=== PATIENT | female | born 1980 | race Two or more races ===

== ENCOUNTER 2025-05-09 23:24 | Inpatient (IN) | payer OTHER ==
[~2025-05-09] VITALS: Ht 162.6 cm; Wt 56.7 kg
[2025-05-10 00:09] LABS: *BILIRUBIN,URIN NEGATIVE (NEGATIVE); *BLOOD, URINE 2+ (NEGATIVE); *CLARITY,URINE CLEAR (CLEAR); *COLOR,URINE YELLOW (YELLOW); *KETONES,URINE NEGATIVE (NEGATIVE); *PROTEIN,URINE 2+ (NEGATIVE); *UROBILINOGEN,URINE 1.0 E.U./dl (NORMAL); LEUKOCYTE ESTERASE ,URINE 1+ (NEGATIVE); NITRITE, URINE NEGATIVE (NEGATIVE); UGLUCOSE NEGATIVE (NEGATIVE)
[2025-05-10 00:11] LABS: CREATININE 0.8 mg/dL (0.6-1.3); SODIUM SERUM 140.0 mmol/L (136-145); UREA NITROGEN, BLOOD 9.0 mg/dL (7-18)
[2025-05-10 00:12] LABS: *URINE HCG, QUAL NEGATIVE (NEGATIVE)
[2025-05-10 00:14] LABS: PLATELET COUNT (AUTO) 377 K/uL (179-408); RED BLOOD CELL COUNT(AUTO) 3.87 MIL/uL (3.63-4.92); RED CELL DISTRIBUTION WIDTH 22.3 % (12.3-17.7); WHITE BLOOD COUNT (AUTO) 10.6 K/uL (3.8-11.8)
[2025-05-10] MEDS: KETOROLAC TROMETHAMINE 15 MG INJ IVP ONE (00:15)
[2025-05-10] MEDS: ONDANSETRON 4 MG/2 ML VIAL IV ONE (00:15)
[2025-05-10] MEDS: IV NORMAL SALINE 1000 ML BAG IV ONE (00:15)
[2025-05-10 00:16] LABS: SQUAMOUS EPITHELIAL CELL,UR FEW /HPF (NONE SEEN)
[2025-05-10 00:17] LABS: ASPARTATE AMINOTRANSFERASE 27.0 U/L (15-37); TOTAL PROTEIN, SERUM 8.3 g/dL (6.4-8.2)
[2025-05-10] MEDS: POTASSIUM CHLORIDE 20 MEQ TAB.PRT.SR PO ONE ×2 (01:37→04:49)
[2025-05-10] MEDS ORDERED: HYDROCODONE/APAP 10-325 MG TABLET ONE (02:38)
[2025-05-10] MEDS: HYDROCODONE/APAP 10-325 MG TABLET PO ONE (02:39)
[2025-05-10] MEDS ORDERED: MORPHINE SULFATE 4 MG/1 ML DISP.SYRIN ONE (05:56)
[2025-05-10] MEDS: MORPHINE SULFATE 4 MG/1 ML DISP.SYRIN IV ONE (05:57)
[2025-05-10] MEDS ORDERED: ONDANSETRON 4 MG/2 ML VIAL IV PRN (06:30)
[2025-05-10] MEDS ORDERED: MAGNESIUM HYDROXIDE 30 ML LIQUID UDC PO PRN (06:30)
[2025-05-10] MEDS ORDERED: ACETAMINOPHEN 325 MG TABLET PO PRN (06:30)
[2025-05-10 07:30] VITALS: BP 106/57; TEMP 98; O2SAT 100
[2025-05-10] MEDS: IV NS 1000 ML 1,000 ML IV SCH (08:06)
[2025-05-10] MEDS: PANTOPRAZOLE SODIUM 40 MG VIAL IV SCH (09:32)
[2025-05-10] MEDS: MORPHINE SULFATE 4 MG/1 ML DISP.SYRIN IV PRN (10:59)
[2025-05-10] MEDS ORDERED: FERR-68 PO (11:04)
[2025-05-10] MEDS ORDERED: ACET-2030 PO (11:05)
[2025-05-10] MEDS ORDERED: IBUP200C5 PO (11:06)
[2025-05-10 11:45] VITALS: BP 103/63; TEMP 98.2; O2SAT 100
[2025-05-10 16:08] VITALS: BP 101/57; TEMP 98.7; O2SAT 100
[2025-05-10 20:07] VITALS: BP 106/61; TEMP 98.5; O2SAT 98
[2025-05-11] MEDS: IV D5/ 0.9% NACL 1,000 ML IV PRN (01:47)
[2025-05-11 04:45] VITALS: BP 107/68; TEMP 98.5; O2SAT 98
[2025-05-11 07:25] LABS: PLATELET COUNT (AUTO) 331 K/uL (179-408); RED BLOOD CELL COUNT(AUTO) 3.32 MIL/uL (3.63-4.92); RED CELL DISTRIBUTION WIDTH 21.3 % (12.3-17.7); WHITE BLOOD COUNT (AUTO) 5.4 K/uL (3.8-11.8)
[2025-05-11 07:47] LABS: CREATININE 0.5 mg/dL (0.6-1.3); SODIUM SERUM 140 mmol/L (136-145); UREA NITROGEN, BLOOD 8 mg/dL (7-18)
[2025-05-11] MEDS ORDERED: GABAPENTIN 100 MG CAPSULE PO ONE (08:00)
[2025-05-11] MEDS: GABAPENTIN 100 MG CAPSULE PO ONE (08:08)
[2025-05-11] MEDS: ACETAMINOPHEN 500 MG TABLET PO ONE (08:16)
[2025-05-11] MEDS: ACETAMINOPHEN 325 MG TABLET PO ONE (08:20)
[2025-05-11] MEDS ORDERED: FENTANYL CITRATE 100 MCG/2 ML AMPUL ONE (09:03)
[2025-05-11] MEDS ORDERED: MIDAZOLAM HCL 2 MG/2 ML VIAL ONE (09:03)
[2025-05-11] MEDS ORDERED: CLINDAMYCIN 600 MG PIGGYBACK**ER OMNI IV ONE (09:07)
[2025-05-11] MEDS ORDERED: SEVOFLURANE 250 ML BOTTLE ONE (09:08)
[2025-05-11] MEDS ORDERED: LABETALOL HCL 100 MG/20 ML VIAL IV PRN (10:00)
[2025-05-11] MEDS ORDERED: EPHEDRINE SULFATE 50 MG/ML AMPUL IV PRN (10:00)
[2025-05-11] MEDS ORDERED: ONDANSETRON 4 MG/2 ML VIAL IV PRN (10:00)
[2025-05-11] MEDS ORDERED: FENTANYL CITRATE 100 MCG/2 ML AMPUL IV PRN (10:00)
[2025-05-11] MEDS: OXYBUTYNIN XL 5 MG TABSR PO SCH (11:12)
[2025-05-11 11:59] VITALS: BP 97/55; TEMP 97.5; O2SAT 99
[2025-05-11 16:36] VITALS: BP 105/54; TEMP 97.7; O2SAT 99
[2025-05-11 20:57] VITALS: BP 101/68; TEMP 97.8; O2SAT 97
[2025-05-12 06:04] VITALS: BP 109/63; TEMP 98; O2SAT 99
[2025-05-12] MEDS: PANTOPRAZOLE SODIUM 40 MG TABLET.DR PO SCH (07:55)
[2025-05-12] MEDS ORDERED: OXYBUTYNIN XL 5 MG TABSR PO SCH (09:00)
[2025-05-12] MEDS ORDERED: BENZOCAINE/MENTH/CETYLPYRD LOZENGE MM PRN (10:00)
[2025-05-12 11:12] VITALS: BP 107/61; TEMP 98.6; O2SAT 99
== END 2025-05-12 14:20 | DRG 463 ==
LOC: ER 23:34 → MEDSURG3 05-10 05:18
PROVIDERS: ATTEND Internal Medicine
PROC: 0T768DZ Dilation of Right Ureter with Intraluminal Device, Via Natural or Artificial Opening Endoscopic (ICD-10-PCS; principal; 2025-05-11 09:00)
DX: N13.6 Pyonephrosis (principal); E44.0 Moderate protein-calorie malnutrition; E83.51 Hypocalcemia; D50.9 Iron deficiency anemia, unspecified; D25.9 Leiomyoma of uterus, unspecified; F17.290 Nicotine dependence, other tobacco product, uncomplicated; E87.6 Hypokalemia; Z87.442 Personal history of urinary calculi; N83.201 Unspecified ovarian cyst, right side; N92.0 Excessive and frequent menstruation with regular cycle; Z88.1 Allergy status to other antibiotic agents; Z98.51 Tubal ligation status; Z59.01 Sheltered homelessness
CPT/HCPCS: 36415; 74018; 83690; 83735; 84100; 84703; 85025; 85610; 87086; A9150; G0378; J1885; J1956; J2250; J2270; J2405; J2470; J3010; J3490; J7040; J7042